=== PATIENT | female | born 1950 | race Caucasian/White ===

== ENCOUNTER → 2018-09-15 | Outpatient (CLI) | payer MEDICARE ==
[~2018-09-15] MED LIST: ASPI-515 PO; CHOL2000 PO; NIAC500C3 PO; OMEG300C PO; RED600CA2 PO; UBID100C10 PO
== END | disposition home or self-care (01) ==
LOC: CFH 13:10
PROVIDERS: ATTEND Family Medicine
DX: M47.816 Spondylosis without myelopathy or radiculopathy, lumbar region (principal); M75.101 Unspecified rotator cuff tear or rupture of right shoulder, not specified as traumatic; R91.8 Other nonspecific abnormal finding of lung field; N20.0 Calculus of kidney; M75.51 Bursitis of right shoulder; M25.411 Effusion, right shoulder; R31.29 Other microscopic hematuria
CPT/HCPCS: 72100; 74176

== ENCOUNTER → 2018-10-11 | Outpatient (CLI) | payer MEDICARE ==
[~2018-10-11] MED LIST changes: +OMNIPAQUE 350 MG/ML, 75ML BOTTLE ONE
== END | disposition home or self-care (01) ==
LOC: CFH 10:07
PROVIDERS: ATTEND Family Medicine
DX: D25.9 Leiomyoma of uterus, unspecified (principal); R91.8 Other nonspecific abnormal finding of lung field; I77.810 Thoracic aortic ectasia; M47.813 Spondylosis without myelopathy or radiculopathy, cervicothoracic region
CPT/HCPCS: 71260; 76856; 82565; Q9967